=== PATIENT | female | born 1975 | race Caucasian/White ===

== ENCOUNTER 2024-12-19 09:00 | Emergency (ER) | payer OTHER, SELFPAY ==
[2024-12-19 09:03] VITALS: BP 179/106
--- NOTE | 2024-12-19 10:01 | ED.GENMED ---
History of Present Illness
General
Chief Complaint: Musculo-Skeletal Complaint
Source: patient
Exam Limitations: none
Time Seen by Provider: 12/19/24 09:36
Nursing documentation reviewed up to this point in time: agreed with
History of Present Illness
History of Present Illness:
49-year-old female with history as noted presents to the ER for evaluation of left knee pain. Patient reports that she had a minor injury to the knee�she thinks she twisted it�about a month ago. She rested for a bit and pain seemed to improve.
Over the past week she returned to her exercise regiment which is mainly [employer] bike. She says that she started to notice especially when she stands on the bike that she was having pain in the left knee again. Over the past 24 hours pain has been
constant and she had increased swelling. Came to the ER for assessment. Denies fever or chills. She denies any secondary trauma aside from the initial twist last month. No other acute complaints.
Review of Systems
Review of Systems
All Other Systems: ROS reviewed and negative except as documented in HPI and ROS
Constitutional: Denies fever or chills
Respiratory: Denies trouble breathing
Cardiac: Denies chest pain
Musculoskeletal: Reports joint pain and joint swelling; Denies edema
Phy Exam
Physical Exam
Physical Exam:
General: Awake, alert; no acute distress
Head: Normocephalic, atraumatic
Eyes: Conjunctiva normal
Throat: Airway intact, handling secretions
Neck: Trachea midline
Lungs: Breathing comfortably with no distress, no tachypnea or hypoxia, no evidence of cyanosis
Heart triage tachycardia resolved by my assessment�regular rate on my assessment
Neuro: Grossly intact
Skin: no rash no wounds, lacerations or abrasions near the knee, no erythema or warmth of the skin overlying the knee
Extremities: Patient has a large joint effusion in the left knee; no joint line tenderness, no pain with manipulation of patella, no tenderness in popliteal fossa; no edema in the left leg; she does have full range of motion although she has pains
with extremes of flexion; she has no laxity on varus or valgus strain of the left knee, negative anterior drawer sign
Scores
Heart Failure Risk
Heart Failure Risk Score: Not Applicable
Heart Score for Chest Pain Patients
STEMI patient?: Not applicable
Withdrawal Assessment of Alcohol
Withdrawal Assessment Completed?: Not applicable
Course
Orders/Labs/Results
Orders:
Orders
12/19/24 09:06
CR Knee - Left 4 Or More View* Urgent
Comment:
Reason For Exam: Injury
12/19/24 10:09
Body Fluid Cell Count Urgent
What is the Body Fluid: joint
Date Specimen was Collected: 12/19/24
Time Specimen was Collected: 10:02
Comment: with DIFF
Body Fluid Crystals Urgent
What is the Body Fluid: joint
Date Specimen was Collected: 12/19/24
Time Specimen was Collected: 10:02
Body Fluid Glucose Urgent
Fluid Source: Other
Date Specimen was Collected: 12/19/24
Time Specimen was Collected: 10:02
Lyme PCR, DNA [S] Urgent
Fluid Culture with Gram Stain Urgent
HORACIO Source: Joint Fluid
Specimen Description:
Date Specimen was Collected: 12/19/24
Time Specimen was Collected: 10:02
Vital Signs
Initial and Last Documented VS:
Initial Vital Signs
Temp Pulse Resp BP Pulse Ox
37.1 C 117 20 179/106 99
12/19/24 09:03 12/19/24 09:03 12/19/24 09:03 12/19/24 09:03 12/19/24 09:03
Last Documented Vital Signs
Temp Pulse Resp BP Pulse Ox
37.1 C 117 20 179/106 99
12/19/24 09:03 12/19/24 09:03 12/19/24 09:03 12/19/24 09:03 12/19/24 10:09
Procedures
Incision/Drainage/Joint Aspiration
Left Knee:
Anethesia: 1% Lidocaine with Epi
Preparation: cleaned with Betadine
Type of procedure: aspiration
Nature of site: other (joint effusion)
How much fluid was obtained?: number in mls (50cc)
Fluid description: straw colored and blood tinged
Treatment: bandaid applied
MDM/Problems Addressed
Differential Diagnosis Includes:
Osteoarthritis, knee sprain, internal derangement, gout, septic arthritis considered very unlikely clinically, low suspicion for fracture
MDM/Problems Addressed:
49-year-old female presents for evaluation of continued pain in the left knee�initially twisted the knee, pain improved and then when she returned to exercise started pain and now swelling. Vitals and exam as above. X-ray of the knee reviewed by
me shows no acute fracture. She does have a large joint effusion. Suspect likely knee sprain; spoke to the patient about recent benefits of paracentesis and she wished to proceed with procedure more for symptomatic relief than diagnostic purposes.
We will send off fluid studies for completeness. Stable for discharge to follow-up with orthopedist pending fluid studies.
Joint fluid reviewed, no signs of infection. Suspect effusion related to a knee sprain. Ole bandage applied, stable for discharge can follow-up with orthopedics. Spoke about RICE. All questions answered.
*Radiology
Radiology exam reviewed: preliminary read by ED provider and radiology read reviewed
*Pulse Oximetry
SaO2: 99
Oxygen Mode of Delivery: Room air
Patient hypoxic: no (99%)
*Critical Care Note
Total Time (30-74mins, 75-104mins- exclusive of procedures): Not Applicable
Data Reviewed
Source: patient and spouse
ED Attending Note
-
Portions of this chart may have been created with voice recognition software.� Occasional wrong word or��sound alike� substitutions may have occurred due to the inherent limitations of voice recognition software.
Discharge Plan
Departure
Patient Disposition: Home (Routine Discharge)
Date of Disposition: 12/19/24
Time of Disposition: 12:02
Patient with high blood pressure during this ER visit?: Yes
Discharge Problem:
Knee sprain
Instructions: Knee Sprain (DC)
Referrals:
Yohan Chapman MD [Active, Orthopedics] - Call in 1-3 days for appt
Activity Restrictions/Additional Instructions:
Thank you for visiting the Emergency Department at [facility].
1. Please schedule a follow up appointment as directed. Call first thing tomorrow morning to make an appointment.
2. If indicated, please take your medications as instructed and indicated on discharge paperwork.
3. If any of your symptoms do not improve, or persist, or become more severe within 6-12 hours, please return to the emergency department for further care.
4. Please return to the emergency department if you develop a headache, neck pain/stiffness, fever greater than 100.4F, chest pain, shortness of breath, persistent nausea, vomiting, slurred speech, difficulty walking, numbness/tingling, weakness,
signs of infection or any other symptoms that are worrisome to you.
Please call [phone] if you have any questions.
Interventions
Interventions:
*Risk Screen - Suicide Last Done: 12/19/24 09:05
Discharge Date and Time
Print Language: KHMER
[2024-12-19 11:51] LABS: Body Fluid Second Tech SS
[2024-12-22 02:04] LABS: Lyme Disease DNA by PCR Not Detected; Lyme Source Synovial fluid
== END 2024-12-19 12:05 | disposition home or self-care (01) ==
LOC: EMR 09:00
PROVIDERS: EMERGENCY PHYSICIAN Emergency Medicine; FAMILY PHYSICIAN Internal Medicine
DX: S83.92XA Sprain of unspecified site of left knee, initial encounter (principal); X50.1XXA Overexertion from prolonged static or awkward postures, initial encounter; M25.462 Effusion, left knee
CPT/HCPCS: 20610; 99284; 73564; 82945; 87015; 87070; 87205; 87476; 89051; 89060